=== PATIENT | female | born 1935 | race Caucasian/White ===

== ENCOUNTER → 2016-07-12 | Outpatient (CLI) | payer OTHER, MEDICARE ==
--- NOTE | 2016-07-12 16:52 | CT ---
CT Head, Without Contrast History: Follow up shunted normal pressure hydrocephalus. Technique: Axial unenhanced images were obtained from the vertex through the skull base. Dose reduc tion techniques were utilized. Comparison: CT head July 04, 2013. Findings: Right occipital ventriculostomy catheter is in stable position, with the tip in the inferi or aspect of the body of the left lateral ventricle. Mccord-white differentiation is preserved. Mild ventriculomegaly is stable. No intracranial hemorrhage is identified. No extraaxial fluid collecti ons are identified. There is no mass, mass effect, or evidence of infarct. Atherosclerotic calcific ation is present in the distal internal carotid arteries. The skull and skull base are unremarkable. The paranasal sinuses and mastoid air cells are normally aerated. Impression: Stable exam.
== END ==
LOC: FIMAGING 15:51
PROVIDERS: ATTEND Physician Assistant Surgical
DX: Z09 Encounter for follow-up examination after completed treatment for conditions other than malignant neoplasm (principal); Z98.2 Presence of cerebrospinal fluid drainage device; G91.2 (Idiopathic) normal pressure hydrocephalus

== ENCOUNTER → 2016-08-04 | Outpatient (CLI) | payer OTHER, MEDICARE | LOC: FIMAGING 08:26 | PROVIDERS: ATTEND Neurological Surgery | DX: T85.698A Other mechanical complication of other specified internal prosthetic devices, implants and grafts, initial encounter (principal) | CPT/HCPCS: 78645; A9539 ==

== ENCOUNTER 2016-11-13 07:28 | Inpatient (IN) | payer OTHER, MEDICARE ==
[2016-11-13] MEDS ORDERED: BUPIVACAINE/EPI 0.25% 30 ML SDV ONE (07:57)
[2016-11-13] MEDS ORDERED: THROMBIN (BOVINE) 5,000 UNIT VIAL TP ONE (07:57)
[2016-11-13] MEDS ORDERED: BACITRACIN 50,000 UNITS/10 ML SYR IRR ONE (07:58)
[2016-11-13] MEDS ORDERED: LR 1,000 ML IV ONE (08:10)
--- NOTE | 2016-11-13 09:41 | PDANEPAE ---
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 ANE Past Medical History - Cardiovascular History Hx Hypertension: Yes Hx Arrhythmias: No Hx Chest Pain: No Hx Coronary Artery / Peripheral Vascular Disease: No Hx CHF / Valvular Disease: No Hx Palpitations: No - Pulmonary History Hx COPD: No Hx Asthma/Reactive Airway Disease: No Hx Recent Upper Respiratory Infection: No Hx Oxygen in Use at Home: No - Neurologic History Hx Cerebrovascular Accident: No Hx Seizures: No Hx Dementia: Yes - Endocrine History Hx Diabetes: No - Renal History Hx Renal Disorders: Yes - Liver History Hx Hepatic Disorders: No - Neurological & Psychiatric Hx Hx Neurological and Psychiatric Disorders: No - Cancer History Hx Cancer: No - Congenital Disorder History Hx Congenital Disorders: No - GI History Hx Gastrointestinal Disorders: No - Chronic Pain History Chronic Pain: No ANE Review of Systems Review of Systems: No URI/cough/fever x2 weeks. Persistent sinus drainage leads to chronic cough. - Exercise capacity METS (RN): 4 METS - Systems Constitutional: Reports: no symptoms, other Cardiac: Reports: no symptoms Respiratory: Reports: no symptoms, cough (dry cough secondary to sinus drainage) Neurological: Reports: other (dementia) ANE Patient History - Allergies Allergies/Adverse Reactions: No Allergies [NKDA] Allergy (Verified 11/13/16 08:09) YEAST/MOLDS Allergy (Mild, Uncoded 11/13/16 08:09) Other-Enter Comments - Home Medications Home Medications: Calcium Polycarbophil [Fiber Laxative] 625 mg PO DAILY 11/09/16 [Last Taken 04/20] Cyanocobalamin [Vitamin B12 (*)] 1,000 mcg PO DAILY 11/09/16 [Last Taken ] Levothyroxine [Synthroid 75 mcg (*)] 75 mcg PO DAILY 11/09/16 [Last Taken ] Mirabegron [Myrbetriq] 50 mg PO DAILY 11/09/16 [Last Taken 11/12/16] Montelukast Sodium [Singulair 10 mg (*)] 10 mg PO DAILY 11/09/16 [Last Taken 04/20] Multivitamins [Multivitamin (*)] 1 each PO DAILY 11/09/16 [Last Taken 11/12/16] Nitrofurantoin Monohyd/M-Cryst [Nitrofurantoin [place]-Macrocrystal] 100 mg PO DAILY 11/09/16 [Last Taken 11/12/16] RX: Benzonatate 200 mg PO DAILY 11/09/16 [Last Taken 11/12/16] RX: Herbals/Supplements -Info Only 1 ea PO AD 11/09/16 [Last Taken 11/12/16] Valsartan [Diovan (*)] 320 mg PO DAILY 11/09/16 [Last Taken 11/12/16] - NPO status NPO Since - Liquids (Date): 11/12/16 NPO Since - Liquids (Time): 19:00 NPO Since - Solids (Date): 11/12/16 NPO Since - Solids (Time): 19:00 - Anes Hx Anes Hx: no prior problems - Smoking Hx Smoking Status: Never smoked Marijuana use: No - Alcohol Use Alcohol Use: Occasionally (2-3 drinks/week) - Family Anes Hx Family Anes Hx: neg - N/A Family Hx Anesthesia Complications: NONE ANE Labs/Vital Signs - Vital Signs Blood Pressure: 166/74 Heart Rate: 70 Respiratory Rate: 16 O2 Sat (%): 93 Height: 167.64 cm Weight: 71.668 kg ANE Physical Exam - Airway Neck exam: decreased ROM Mallampati Score: Class 3 Mouth exam: small mouth opening, abnormal chin - Pulmonary Pulmonary: clear to auscultation - Cardiovascular Cardiovascular: regular rate and rhythym - ASA Status ASA Status: III
[2016-11-13] MEDS ORDERED: fentaNYL 100 MCG/2 ML INJ ONE ×3 (10:13→10:14)
[2016-11-13] MEDS ORDERED: LIDOCAINE 2% 5 ML SDV ONE (10:14)
[2016-11-13] MEDS ORDERED: ROCURONIUM 100 MG/10 ML VIAL ONE (10:14)
[2016-11-13] MEDS ORDERED: DEXAMETHASONE 4 MG/ML VIAL ONE ×2 (10:14)
[2016-11-13] MEDS ORDERED: PROPOFOL/EMULSION 500 MG/50 ML BOTTLE IV ONE (10:14)
--- NOTE | 2016-11-13 10:16 | PDGENHP ---
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 No with worsening memory loss, ataxia and urinary incontinence. Pertinent Past, Social, Family History: anxiety, dementia, depression, hyperlipidemia, htn, NPH, memory loss, osteoporosis Relevant Physical Exam: AAOx4, +FC. PERRL, EOMI, no facial droop. 5/5. + light touch Cardiorespiratory Assessment: NA. AP: 81 yo F with progressive NPH symptoms consistent with shunt failure. 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
--- NOTE | 2016-11-13 10:19 | PDANEPAE ---
ANE Past Medical History - Cardiovascular History Hx Hypertension: Yes Hx Arrhythmias: No Hx Chest Pain: No Hx Coronary Artery / Peripheral Vascular Disease: No Hx CHF / Valvular Disease: No Hx Palpitations: No - Pulmonary History Hx COPD: No Hx Asthma/Reactive Airway Disease: No Hx Recent Upper Respiratory Infection: No Hx Oxygen in Use at Home: No - Neurologic History Hx Cerebrovascular Accident: No Hx Seizures: No Hx Dementia: Yes - Endocrine History Hx Diabetes: No - Renal History Hx Renal Disorders: Yes - Liver History Hx Hepatic Disorders: No - Neurological & Psychiatric Hx Hx Neurological and Psychiatric Disorders: No - Cancer History Hx Cancer: No - Congenital Disorder History Hx Congenital Disorders: No - GI History Hx Gastrointestinal Disorders: No - Chronic Pain History Chronic Pain: No ANE Review of Systems - Exercise capacity METS (RN): 4 METS ANE Patient History - Allergies Allergies/Adverse Reactions: No Allergies [NKDA] Allergy (Verified 11/13/16 08:09) YEAST/MOLDS Allergy (Mild, Uncoded 11/13/16 08:09) Other-Enter Comments - Home Medications Home Medications: Benzonatate 200 mg PO DAILY 11/09/16 [Last Taken 11/12/16] Calcium Polycarbophil [Fiber Laxative] 625 mg PO DAILY 11/09/16 [Last Taken 04/20] Cyanocobalamin [Vitamin B12 (*)] 1,000 mcg PO DAILY 11/09/16 [Last Taken ] Herbals/Supplements -Info Only 1 ea PO AD 11/09/16 [Last Taken 11/12/16] Levothyroxine [Synthroid 75 mcg (*)] 75 mcg PO DAILY 11/09/16 [Last Taken ] Mirabegron [Myrbetriq] 50 mg PO DAILY 11/09/16 [Last Taken 11/12/16] Montelukast Sodium [Singulair 10 mg (*)] 10 mg PO DAILY 11/09/16 [Last Taken 04/20] Multivitamins [Multivitamin (*)] 1 each PO DAILY 11/09/16 [Last Taken 11/12/16] Nitrofurantoin Monohyd/M-Cryst [Nitrofurantoin [place]-Macrocrystal] 100 mg PO DAILY 11/09/16 [Last Taken 11/12/16] Valsartan [Diovan (*)] 320 mg PO DAILY 11/09/16 [Last Taken 11/12/16] - NPO status NPO Since - Liquids (Date): 11/12/16 NPO Since - Liquids (Time): 19:00 NPO Since - Solids (Date): 11/12/16 NPO Since - Solids (Time): 19:00 - Smoking Hx Smoking Status: Never smoked - Alcohol Use Alcohol Use: Occasionally (2-3 drinks/week) - Family Anes Hx Family Hx Anesthesia Complications: NONE ANE Labs/Vital Signs - Vital Signs Blood Pressure: 166/74 Heart Rate: 70 Respiratory Rate: 16 O2 Sat (%): 93 Height: 167.64 cm Weight: 71.668 kg
[2016-11-13] MEDS ORDERED: CEFUROXIME 1,500 MG in NS 50 ML IV ONE (11:00)
[2016-11-13] MEDS ORDERED: PHENYLEPHRINE HCL 100 MCG/ML SYR ONE (11:00)
[2016-11-13] MEDS ORDERED: fentaNYL 100 MCG/2 ML INJ IVP PRN (12:13)
[2016-11-13] MEDS ORDERED: LABETALOL HCL 5 MG/ML 20 ML MDV IVP PRN (12:13)
[2016-11-13] MEDS ORDERED: LR 250 ML IV PRN (12:13)
[2016-11-13] MEDS ORDERED: ACETAMINOPHEN 500 MG TAB PO PRN (12:13)
[2016-11-13] MEDS ORDERED: HYDROCODONE/APAP 5/325 TAB PO PRN (12:13)
[2016-11-13] MEDS ORDERED: NALOXONE HCL 0.4 MG/ML INJ IVP PRN (12:13)
[2016-11-13] MEDS ORDERED: PROMETHAZINE HCL 25 MG/ML INJ IVP PRN (12:13)
[2016-11-13] MEDS ORDERED: ALBUTEROL 3 ML DEYVIAL IH PRN (12:13)
[2016-11-13] MEDS ORDERED: ONDANSETRON 4 MG/2 ML VIAL ONE (12:15)
[2016-11-13] MEDS ORDERED: DIAZEPAM 5 MG TAB PO PRN (12:27)
[2016-11-13] MEDS ORDERED: BISACODYL 10 MG SUPP PR PRN (12:27)
[2016-11-13] MEDS ORDERED: HYDROCODONE/APAP 10/325 TAB PO PRN (12:27)
[2016-11-13] MEDS ORDERED: ONDANSETRON 4 MG/2 ML VIAL IVP PRN (12:27)
[2016-11-13] MEDS ORDERED: HYDROmorphONE/DILAUDID 1 MG/ML SYR IVP PRN (12:27)
[2016-11-13] MEDS ORDERED: OXYCODONE/APAP 5/325 TAB PO PRN (12:27)
[2016-11-13] MEDS ORDERED: LACTULOSE 20 GM/30 ML UDCUP PO PRN (12:27)
[2016-11-13] MEDS ORDERED: MAGNESIUM HYDROXIDE 30 ML UDCUP PO PRN (12:27)
[2016-11-13] MEDS ORDERED: NS W/ 20 KCl/L 1,000 ML IV SCH (12:30)
--- NOTE | 2016-11-13 12:32 | SOAPPROG ---
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 Objective: Vital Signs Temp Pulse Resp BP Pulse Ox 36.8 C 70 16 166/74 H 93 11/13/16 08:12 11/13/16 09:53 11/13/16 09:53 11/13/16 09:53 11/13/16 09:53 AAOx4, +FC PERRL, EOMI, no facial droop MIKE x 4 + light touch ICD10 Worksheet Patient Problems: Problems Problem Status Onset NPH (normal pressure hydrocephalus) Acute - ICD10 Problem Qualifiers (1) NPH (normal pressure hydrocephalus)
--- NOTE | 2016-11-13 12:41 | POSTANESTH ---
Post Anesthetic Evaluation Respiratory Status: Normal, Stable Level of Consciousness/Mental Status: Can Participate in Eval, Mildly Sleepy, Arousable, Other, See Comment (confused.) Pain Control: Adequate, Prn Tx Ordered Nausea/Vomiting Control: Adequate, Prn Tx Ordered Complications Possibly Related to Anesthesia: None Noted
--- NOTE | 2016-11-13 13:33 | GOP ---
[f rep st] OPERATIVE REPORT DATE OF OPERATION: 11/13/2016 SURGEON: Janes Reyes MD NEUROSURGEON: Janes Reyes MD. SOFTWARE REVERSE ENGINEER: Saeid Hester PA-C. ANESTHESIA: General endotracheal. 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 PROCEDURE PERFORMED: Removal and replacement of ventriculoperitoneal shunt system. Programming of shunt valve. Use of intraoperative fluoroscopy. Use of computer volumetric stereotactic navigation . FINDINGS: ESTIMATED BLOOD LOSS: Trace. INDICATIONS: The patient is a 81-year-old woman with headaches and other symptoms related to shunt failure. She presents now for revision. DESCRIPTION OF PROCEDURE: After informed consent was obtained, the patient was taken to the operati ng room and placed in the supine position with the head in a 3-point department head and turned to the l eft. The right occipital area was prepped and draped in a sterile fashion all way down to the right upper quadrant of the abdomen based on her prior incisions and location of the shunt which was loca lized intraoperatively using biplanar fluoroscopy. A curvilinear upside-down horseshoe style incisi on was created over the cranial catheter and shunt valve, which was carefully exposed and disconnect ed and tested. The cranial catheter had sluggish flow and the valve and peritoneal catheter system had very slow flow that stopped at about 20 cm of water. The valve and peritoneal catheter system w ere removed and a second incision in the right upper quadrant of the abdomen was created and carried all way down to the peritoneum where a pursestring suture was placed using 4-0 Nurolon. The shunt passer was passed between the two incisions along with the peritoneal catheter. This was primed and the prior ventricular catheter was removed and a new one placed using computer volumetric stereotac tic navigation. Good flow was obtained. This was connected to the valve and secured with Nurolon s uture. Good spontaneous and pumping flow was visualized out of the distal peritoneal catheter which was then placed in the abdomen and secured with the pursestring suture, and both the cranial and ab dominal wounds were copiously irrigated with antibiotic irrigation and closed in a layered fashion u sing interrupted Vicryl sutures followed by Steri-Strips on the skin of the abdomen and jose luis in t he cranial incision. COMPLICATIONS: None. DISPOSITION: The patient is currently in the process of being repositioned for extubation. /[id number]/MODL
[2016-11-13] MEDS ORDERED: LABETALOL HCL 50 MG/10 ML SYR ONE (14:06)
[2016-11-13] MEDS ORDERED: CEFAZOLIN 1 GM/DEXTROSE/50 ML BAG IV ONE (14:07)
[2016-11-13] MEDS: POLYETHYLENE GLYCOL 3350 17 GM PKT PO SCH ×2 (18:01→21:50)
[2016-11-13] MEDS: SENNOSIDES/DOCUSATE SODIUM TAB PO SCH (21:23)
[2016-11-14 04:45] VITALS: TEMP 98.1
--- NOTE | 2016-11-14 07:53 | SOAPPROG ---
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 Objective: Vital Signs Temp Pulse Resp BP Pulse Ox 36.7 C 75 15 127/61 H 95 11/14/16 04:00 11/14/16 04:00 11/14/16 04:00 11/14/16 04:00 11/14/16 04:00 11/13/16 11/14/16 11/15/16 05:59 05:59 05:59 Intake Total 1475 Output Total 1600 Balance -125 AAOX4, +FC PERRL, EOMI, no facial droop 5/5 + light touch C/D/I x 2 ICD10 Worksheet Patient Problems: Problems Problem Status Onset NPH (normal pressure hydrocephalus) Acute - ICD10 Problem Qualifiers (1) NPH (normal pressure hydrocephalus)
[2016-11-14 08:27] VITALS: BP 145/72; PULSE 61; RESP 16; O2SAT 93
[2016-11-14] MEDS ORDERED: NITROFURANTOIN MACROBID 100 MG CAP PO SCH (09:00)
[2016-11-14] MEDS ORDERED: CALCIUM POLYCARBOPHIL 625 MG PO SCH (09:00)
[2016-11-14] MEDS ORDERED: MONTELUKAST SODIUM 10 MG TAB PO SCH (09:00)
[2016-11-14] MEDS ORDERED: BENZONATATE 100 MG CAP PO SCH (09:00)
[2016-11-14] MEDS ORDERED: Mirabegron [Myrbetriq] 50 MG PO SCH (09:00)
[2016-11-14] MEDS ORDERED: VALSARTAN 160 MG TAB PO SCH (09:00)
[2016-11-14] MEDS ORDERED: CYANO/VITAMIN B12 1000 MCG TAB PO SCH (09:00)
[2016-11-14] MEDS ORDERED: LEVOTHYROXINE 75 MCG TAB PO SCH (09:00)
[2016-11-14] MEDS: POLYETHYLENE GLYCOL 3350 17 GM PKT PO SCH (09:10)
[2016-11-14] MEDS: SENNOSIDES/DOCUSATE SODIUM TAB PO SCH (09:11)
[2016-11-16] MEDS ORDERED: ENOXAPARIN 40 MG/0.4 ML SYR SC SCH (09:00)
== END 2016-11-14 11:30 | disposition home or self-care (01) | DRG 26 ==
LOC: F3N 07:28
PROVIDERS: ADMIT Neurological Surgery; ATTEND Neurological Surgery
DX: T85.09XA Other mechanical complication of ventricular intracranial (communicating) shunt, initial encounter (principal); G91.2 (Idiopathic) normal pressure hydrocephalus
CPT/HCPCS: C1894; J0690; J0697; J1100; J2370; J2405; J2704; J3010

== ENCOUNTER → 2017-05-04 | Outpatient (CLI) | payer OTHER, MEDICARE | LOC: CIMAGING 09:07 | PROVIDERS: ATTEND Neurological Surgery | DX: G91.2 (Idiopathic) normal pressure hydrocephalus (principal); Z95.9 Presence of cardiac and vascular implant and graft, unspecified | CPT/HCPCS: 70450-PO ==

== ENCOUNTER → 2018-09-28 | Outpatient (CLI) | payer OTHER, MEDICARE | LOC: FIMAGING 11:15 | PROVIDERS: ATTEND Physician Assistant Surgical | DX: Z45.41 Encounter for adjustment and management of cerebrospinal fluid drainage device (principal); G93.89 Other specified disorders of brain ==